=== PATIENT | female | born 1960 | race Caucasian/White ===

== ENCOUNTER → 2019-12-28 | Outpatient (CLI) | payer OTHER ==
--- NOTE | 2019-12-28 12:21 | DIREP ---
PROCEDURE: MRI SPINE CERVICAL W/O TECHNIQUE:Axial T1, T2 and gradient echo; sagittal T1, proton density fat-sat, T2 and inversion recovery sequences were obtained of the cervical spine. COMPARISON:None. INDICATIONS:M50.123 Cervical disc disorder at C6-C7 level with radiculopathy FINDINGS: ALIGNMENT:Reversal of cervical lordosis at the C4-5 level with 2.2 mm retrolisthesis at this level. VERTEBRAE:No fractures. Anterior osteophyte formation from C4 through C7 but particularly at C4-5. SPINAL CORD:Normal. PARASPINAL AREA:Normal. OTHER:No additional findings. CERVICAL DISC LEVELS C2-3:Normal. C3-4:Normal. C4-5:The disc is narrowed. Disc osteophyte complex indents the anterior thecal sac narrowing the AP diameter of the central canal to 9.0 mm sagittal series 401, image 9. Uncovertebral hypertrophy contributes to mild bilateral foraminal narrowing. C5-6:The disc is narrowed. Disc osteophyte complex indents the anterior thecal sac narrowing the AP diameter of the central canal to 8.6 mm sagittal series 401, image 9. Uncovertebral hypertrophy contributes to [id number] foraminal stenosis. C6-7:The disc is narrowed. Disc osteophyte complex indents the anterior thecal sac narrowing the AP diameter of the central canal to 8.6 mm sagittal series 401, image 9. Uncovertebral hypertrophy contributes to mild to moderate foraminal stenosis on the left. C7-T1:Normal. CONCLUSION: 1. Reversal of cervical lordosis with retrolisthesis at the C4-5 level. 2. Degenerative changes at the C4-5, C5-6 and C6-7 levels as described above with central canal and foraminal narrowing. Dictated by: Anmol Garcia M.D. on 12/28/2019 at 12:05 PM
== END | disposition home or self-care (01) ==
LOC: RAD 10:26
PROVIDERS: ATTEND Chiropractor
DX: M47.812 Spondylosis without myelopathy or radiculopathy, cervical region (principal); M48.02 Spinal stenosis, cervical region; M25.78 Osteophyte, vertebrae; M50.123 Cervical disc disorder at C6-C7 level with radiculopathy
CPT/HCPCS: 72141